=== PATIENT | male | born 1980 | race Caucasian/White ===

== ENCOUNTER 2021-11-19 17:40 | Emergency (ER) | payer MEDICAID, SELFPAY ==
[2021-11-19 17:41] VITALS: BP 159/83; PULSE 124; RESP 23; TEMP 36.6; O2SAT 97; BMI 34.4
--- NOTE | 2021-11-19 18:01 | EKG12_ITS ---
Test Reason : CP Blood Pressure : / mmHG Vent. Rate : 123 BPM Atrial Rate : 123 BPM P-R Int : 124 ms QRS Dur : 086 ms QT Int : 306 ms P-R-T Axes : 058 075 005 degrees QTc Int : 438 ms Sinus tachycardia Low voltage QRS (Limb leads) Confirmed by AG GONZALEZ, AIDEE ([id number]), editor house organ MARLIN MENDEZ ([id number]) on 11/22/2021 12:52:13 PM Referred By: NERY/RUSTY Confirmed By:AIDEE LUONG MD
[2021-11-19] MEDS: predniSONE 20 MG Tablet 60 MG PO (18:07)
--- NOTE | 2021-11-19 18:10 | RAD_ITS ---
INDICATION: cough EXAMINATION/TECHNIQUE: X-RAY - XR Chest 1 View COMPARISON: None. FINDINGS: LINES/DEVICES: None. LUNGS: Symmetric normal lung volumes. No airspace opacity or abnormal interstitial pattern. No nodule or mass. No pleural effusion or pneumothorax. MEDIASTINUM AND CARDIOVASCULAR STRUCTURES: Normal size and contour of the cardiomediastinal silhouette. No evidence of pulmonary vascular congestion. BONES AND SOFT TISSUES: No abnormality within limits of the exam. RAD/Chest 1 View (Portable) IMPRESSION: 1. No radiographic evidence of acute cardiopulmonary disease. Electronically Signed: Clarke Lara DO at 20:10 EST Tel , Service support ,
[2021-11-19] MEDS: Ipratropium/Albuterol Sulfate 3 ML AMPUL.NEB INHALATION ×2 (18:23→20:00)
[2021-11-19] MEDS: Albuterol 2.5 MG/3 ML VIAL.NEB. INHALATION (18:23)
[2021-11-19 18:24] VITALS: PULSE 116; RESP 12; O2SAT 100
--- NOTE | 2021-11-19 18:31 | EX.ED.DYSGE1 ---
HPI History of Present Illness Chief Complaint: Chest Pain Informant: patient Narrative Narrative: Patient states that he has been having problems with wheezing ever since he had Covid a little over a month ago. He gets a bit of a cough but no sputum production. No hemoptysis. He states his aerosol helps him but not that much. He used to have a spacer but no longer has one for his MDI. He has a lifelong history of asthma. He states his symptoms feel just like asthma but they are not getting better with his own inhaler. He evidently reported chest pain when he came through to the ED. I asked him about this. He states it was not that it was painful he just felt very tight when he took a breath. He has no leg pain or swelling. No family history of DVT or PE. No personal history. No recent travel surgery or immobilization. He did have the recent Covid though. He has no pleuritic pain. He is not having fevers or chills. [facility] Medical History Asthma Heroin abuse Home Medications Suboxone 11/19/21 [History Last Taken Unknown] albuterol 1 spray PRN PRN 11/19/21 [History Last Taken Unknown] prednisone 60 mg PO DAILY #15 tab 11/19/21 [Rx Last Taken Unknown] Allergy/AdvReac Type Severity Reaction Status Date / Time peanut Allergy Hives Verified 11/19/21 17:46 Social History Smoking Status: Current every day smoker tobacco type: cigarettes ROS ROS ED Constitutional Constitutional ED: Denies chills or fever(s) ENT ENT ED: Denies rhinorrhea or sore throat Cardiovascular Cardiovascular: Denies chest pain, palpitations or racing heartbeat Respiratory/Chest Respiratory/Chest: Reports cough, dyspnea and other Details: See history of present illness. ; Denies dyspnea on exertion or sputum Gastrointestinal Gastrointestinal: Denies abdominal pain, diarrhea, nausea or vomiting Genitourinary Genitourinary ED: Denies dysuria Musculoskeletal Musculoskeletal: Denies arthralgias or myalgias Integumentary Denies rash Neurologic Neurologic: Denies headache(s) Psychiatric Psychiatric: Denies anxiety or depression Endocrine Endocrinology: Denies polydipsia or polyuria Allergic/Immunologic Allergic/Immunologic ED: Denies mouth swelling or urticaria EXAM Physical Exam Const Vital Signs: 11/19/21 17:41 11/19/21 17:47 11/19/21 18:24 Temperature 97.8 F Temperature Source Oral Pulse Rate 124 H 116 H Respiratory Rate 23 H 12 Respiratory Effort Short of Breath Labored Respiratory Pattern Tachypnea Blood Pressure 159/83 H Blood Pressure Mean 108 Pulse Ox 97 100 Oxygen Delivery Method Room Air Room Air 11/19/21 18:58 11/19/21 20:00 11/19/21 20:04 Temperature Temperature Source Pulse Rate 111 H 106 H 108 H Respiratory Rate 23 H 22 H 11 L Respiratory Effort Respiratory Pattern Normal Blood Pressure 129/77 H Blood Pressure Mean 94 Pulse Ox 100 100 Oxygen Delivery Method Room Air Room Air Positive well nourished and well developed General Appearance ED: well developed and NAD; Negative for cyanotic or diaphoretic HEENT Negative for trauma or tenderness Eyes EOMs intact bilaterally Neck no lymphadenopathy and no JVD Chest Wall inspection of chest normal and palpation of chest normal Resp Resp Narrative: Patient has diffuse inspiratory and expiratory wheezes. No pain with a deep breath. Auscultation: wheezes Cardio regular rhythm Rate: tachycardic and other Other Details: Rate is mildly tachycardic. I hear no murmur but is very hard to hear cardiac tones over the amount of wheezing that he has. GI normal to inspection, nondistended, normoactive bowel sounds and non-tender Palpation: soft Psych mental status grossly normal Skin no rashes or lesions noted MDM MDM MDM Narrative Medical decision making narrative: Patient was rechecked. His wheezing markedly improved. He states he feels a lot better. His heart rate is down to about 98-1 04 now. He now states that his symptoms really kicked in today. He was at his family's house locally. He was concerned because their bathtub was dirty and he is concerned about germs. He mixed Clorox and another janitor cleaner and sprayed it in the bathtub. He states it was not spraying enough so he open the bottle and kind of port and shook it onto the aponte. He then got a lot worse problems with breathing. He did not think this was important but he figured he did mention it now. I explained that this is significantly important. This is something he should avoid doing and he should air out the area at home. He would like to go home. I think that is a reasonable option. Since he still has some wheezing I will give him another DuoNeb treatment. He is also out of his albuterol for almost out. I will fill this and also get him a spacer. We will get him on prednisone. We discussed reasons to return that include pain, hemoptysis, fevers or other concerns. His chest x-ray showed no acute process. Radiography Diagnostic Testing: Clinical Impression(s) from Imaging Studies Chest X-Ray 11/19/21 18:10 IMPRESSION: 1. No radiographic evidence of acute cardiopulmonary disease. Electronically Signed: Clarke Lara DO at 20:10 EST Tel , Service support , EKG Initial EKG: Comments: EKG done for shortness of breath and reported chest pain read by me shows sinus rhythm with tachycardic rate at 123. No ventricular ectopy. No acute ST elevation or depression. FL interval, QRS duration and QTc normal. Discharge Plan Triage Chief Complaint: Chest Pain ED Provider: Damir Trimble Dx/Rx/DC Orders Clinical Impression: Asthma exacerbation, Acute chemical pneumonitis Instructions: ED Asthma, Acute (Adult) Prescriptions: New prednisone 20 MG tablet 60 mg PO DAILY Qty: 15 RF: 0 No Action Suboxone RF: 0 albuterol 1 spray PRN PRN (Reason: Shortness Of Breath Or Wheezing) RF: 0 Primary Care Provider: Care Physician,No Primary Referrals: Enma Suazo MD [STAFF PHYSICIAN] - 3-5 Days if not improving Care Physician,No Primary [Primary Care Provider] - Disposition Disposition: Home, Self Care
[2021-11-19 18:58] VITALS: PULSE 111; RESP 23; O2SAT 100
--- NOTE | 2021-11-19 19:56 | ED.RN ---
Called radiology as chest x-ray was taken at 180 and no results yet. Tech will call.
[2021-11-19 20:00] VITALS: PULSE 106; RESP 22
[2021-11-19 20:04] VITALS: BP 129/77; PULSE 108; RESP 11; O2SAT 100
[2021-11-19 20:33] VITALS: BP 129/69; PULSE 102; RESP 23; O2SAT 100
== END 2021-11-19 20:38 | disposition home or self-care (01) ==
PROVIDERS: Emergency Provider Emergency Medicine; Visit Provider Emergency Medicine
DX: T54.91XA Toxic effect of unspecified corrosive substance, accidental (unintentional), initial encounter (principal); J68.0 Bronchitis and pneumonitis due to chemicals, gases, fumes and vapors; F17.210 Nicotine dependence, cigarettes, uncomplicated; J45.901 Unspecified asthma with (acute) exacerbation
CPT/HCPCS: 71045; 93005; 94640; 99284; A4216